=== PATIENT | male | born 1945 | race Caucasian/White ===

== ENCOUNTER → 2016-10-13 | Outpatient (CLI) | payer MEDICARE ==
--- NOTE | 2016-10-19 09:33 | RSPPFT ---
DATE OF PROCEDURE: 10/13/16 COMMENTS: Spirometry demonstrates an FEV1 of 2.9 at 96% of predicted, FVC of 3.3 at 73%, FEF 25-75 at 173%. Post-bronchodilator study demonstrated no significant change. Lung volumes were not completed. Diffusion capacity is moderately reduced. Flow volume loops appear unremarkable. IMPRESSION: 1. No significant obstructive disease. 2. Probable mild restrictive disease. 3. No significant change following use of bronchodilator.
== END ==
LOC: HRSP 09:07
DX: J84.10 Pulmonary fibrosis, unspecified (principal)
CPT/HCPCS: 94060; 94729